=== PATIENT | male | born 1970 | race Caucasian/White ===

== ENCOUNTER 2021-07-01 09:09 | Outpatient (CLI) | payer BC | END 2021-07-01 09:10 | disposition home or self-care (01) | LOC: CSHCT 09:09 | PROVIDERS: ATTEND Internal Medicine Hematology & Oncology | DX: C18.4 Malignant neoplasm of transverse colon (principal) | CPT/HCPCS: 71260; 74177 ==

== ENCOUNTER 2021-12-17 09:10 | Outpatient (CLI) | payer BC | END 2021-12-17 09:11 | disposition home or self-care (01) | LOC: CSHCT 09:10 | PROVIDERS: ATTEND Internal Medicine Hematology & Oncology | DX: C18.4 Malignant neoplasm of transverse colon (principal); R91.1 Solitary pulmonary nodule; Z90.49 Acquired absence of other specified parts of digestive tract | CPT/HCPCS: 71260; 74177; 82565 ==

== ENCOUNTER 2022-06-17 09:07 | Outpatient (CLI) | payer BC ==
[~2022-06-17 09:07] MED LIST: Iopamidol 300 61% 100 ML VIAL FS ONE
== END 2022-06-17 09:08 | disposition home or self-care (01) ==
LOC: CSHCT 09:07
PROVIDERS: ATTEND Internal Medicine Hematology & Oncology
DX: C18.9 Malignant neoplasm of colon, unspecified (principal); E66.9 Obesity, unspecified
CPT/HCPCS: 71260; 74177; Q9967

== ENCOUNTER 2022-12-02 08:02 | Outpatient (CLI) | payer BC ==
[2022-12-02] MEDS ORDERED: Iopamidol 300 61% 100 ML VIAL FS ONE (16:59)
== END 2022-12-02 08:03 | disposition home or self-care (01) ==
LOC: CSHCT 08:02
PROVIDERS: ATTEND Internal Medicine Hematology & Oncology
DX: C18.9 Malignant neoplasm of colon, unspecified (principal)
CPT/HCPCS: 71260; 74177; Q9967